=== PATIENT | female | born 1970 | race Hispanic/Latino ===

== ENCOUNTER 2017-01-13 21:54 | Emergency (ER) | payer SELFPAY ==
[2017-01-13] MEDS ORDERED: traMADol HCl 50 MG TAB ONE (22:17)
== END 2017-01-13 22:24 | disposition home or self-care (01) ==
LOC: NAV ERS 21:54
DX: M54.42 Lumbago with sciatica, left side (principal)
CPT/HCPCS: 99283

== ENCOUNTER 2017-02-04 03:03 | Emergency (ER) | payer SELFPAY ==
[2017-02-04] MEDS ORDERED: traMADol HCl 50 MG TAB ONE (03:48)
== END 2017-02-04 03:51 | disposition home or self-care (01) ==
LOC: NAV ERS 03:03
DX: M54.42 Lumbago with sciatica, left side (principal)

== ENCOUNTER 2017-12-24 14:47 | Emergency (ER) | payer SELFPAY ==
[2017-12-24] MEDS ORDERED: traMADol HCl 50 MG TAB ONE (15:11)
== END 2017-12-24 15:22 | disposition home or self-care (01) ==
LOC: NAV ERS 14:47
DX: M54.42 Lumbago with sciatica, left side (principal)
CPT/HCPCS: 99283

== ENCOUNTER 2018-02-16 18:25 | Emergency (ER) | payer SELFPAY ==
[2018-02-16] MEDS ORDERED: Amoxicillin/Potassium Clav 875 MG TAB ONE (18:58)
== END 2018-02-16 19:00 | disposition home or self-care (01) ==
LOC: NAV ERS 18:25
DX: K02.9 Dental caries, unspecified (principal)
CPT/HCPCS: 99283

== ENCOUNTER 2018-03-26 18:06 | Emergency (ER) | payer SELFPAY | END 2018-03-26 18:20 | disposition home or self-care (01) | LOC: NAV ERS 18:06 | DX: S39.82XA Other specified injuries of lower back, initial encounter (principal); I10 Essential (primary) hypertension; Z79.899 Other long term (current) drug therapy; X58.XXXA Exposure to other specified factors, initial encounter; Y99.0 Civilian activity done for income or pay | CPT/HCPCS: 99283 ==

== ENCOUNTER 2018-04-08 19:43 | Emergency (ER) | payer SELFPAY ==
[2018-04-08] MEDS ORDERED: predniSONE 20 MG TAB ONE (19:59)
== END 2018-04-08 20:05 | disposition home or self-care (01) ==
LOC: NAV ERS 19:43
DX: M54.41 Lumbago with sciatica, right side (principal)
CPT/HCPCS: 99283; J7506

== ENCOUNTER 2020-03-14 03:21 | Emergency (ER) | payer SELFPAY ==
[2020-03-14] MEDS ORDERED: methylPREDNISolone Acetate 40 mg/ml Vial ONE (04:01)
== END 2020-03-14 04:12 | disposition home or self-care (01) ==
LOC: NAV ERS 03:21
DX: M54.41 Lumbago with sciatica, right side (principal)
CPT/HCPCS: 96372; 99283; J2960

== ENCOUNTER 2020-09-01 20:27 | Emergency (ER) | payer SELFPAY ==
[2020-09-01] MEDS ORDERED: methylPREDNISolone Sod Succ/PF 125 MG/2 ML VIAL ONE (21:04)
== END 2020-09-01 21:18 | disposition home or self-care (01) ==
LOC: NAV ERS 20:27
DX: M54.42 Lumbago with sciatica, left side (principal)
CPT/HCPCS: 96372; 99283; J2930

== ENCOUNTER 2020-10-07 16:53 | Emergency (ER) | payer SELFPAY ==
[2020-10-07] MEDS ORDERED: Ondansetron ODT 4 MG TAB ONE (17:40)
[2020-10-08 17:27] LABS: SARS-CoV-2 MS2 Positive; SARS-CoV-2 N Gene Negative; SARS-CoV-2 S Gene Negative; SARS-CoV-2 by NAA Not Detected (NotDetected); SARS-CoV-2 orf1ab Negative
== END 2020-10-07 18:00 | disposition home or self-care (01) ==
LOC: NAV ERS 16:53
DX: B34.9 Viral infection, unspecified (principal); Z20.828 Contact with and (suspected) exposure to other viral communicable diseases
CPT/HCPCS: 87635; 99284; Q0162; U0003

== ENCOUNTER 2021-01-31 01:52 | Emergency (ER) | payer OTHER, SELFPAY | END 2021-01-31 03:02 | disposition home or self-care (01) | LOC: NAV ERS 01:52 | DX: G89.29 Other chronic pain (principal); M54.42 Lumbago with sciatica, left side | CPT/HCPCS: 99283 ==